=== PATIENT | female | born 1985 | race Two or more races ===

== ENCOUNTER 2022-03-14 13:58 | Outpatient (CLI) | payer OTHER | END 2022-03-14 16:00 | disposition home or self-care (01) | LOC: PRENATAL 13:58 | PROVIDERS: ATTEND Obstetrics & Gynecology Maternal & Fetal Medicine | DX: O35.0XX0 Maternal care for (suspected) central nervous system malformation in fetus, not applicable or unspecified (principal); Z3A.21 21 weeks gestation of pregnancy; O35.3XX0 Maternal care for (suspected) damage to fetus from viral disease in mother, not applicable or unspecified; O24.319 Unspecified pre-existing diabetes mellitus in pregnancy, unspecified trimester; O99.210 Obesity complicating pregnancy, unspecified trimester; O09.219 Supervision of pregnancy with history of pre-term labor, unspecified trimester ==

== ENCOUNTER 2022-04-14 14:05 | Outpatient (CLI) | payer OTHER | END 2022-04-14 15:07 | disposition home or self-care (01) | LOC: PRENATAL 14:05 | PROVIDERS: ATTEND Obstetrics & Gynecology Maternal & Fetal Medicine | DX: O26.849 Uterine size-date discrepancy, unspecified trimester (principal); O24.319 Unspecified pre-existing diabetes mellitus in pregnancy, unspecified trimester; Z3A.26 26 weeks gestation of pregnancy; O99.210 Obesity complicating pregnancy, unspecified trimester ==

== ENCOUNTER 2022-06-03 11:33 | Outpatient (CLI) | payer OTHER | END 2022-06-03 12:32 | disposition home or self-care (01) | LOC: PRENATAL 11:33 | PROVIDERS: ATTEND Obstetrics & Gynecology Maternal & Fetal Medicine | DX: O26.849 Uterine size-date discrepancy, unspecified trimester (principal); O35.0XX0 Maternal care for (suspected) central nervous system malformation in fetus, not applicable or unspecified; O24.319 Unspecified pre-existing diabetes mellitus in pregnancy, unspecified trimester; O99.210 Obesity complicating pregnancy, unspecified trimester ==

== ENCOUNTER 2025-11-05 17:19 | Emergency (ER) | payer OTHER ==
[~2025-11-05] VITALS: Ht 152.4 cm; Wt 93.9 kg
[2025-11-05] MEDS ORDERED: ACETAMINOPHEN 500 MG GEL..CAP PO ONE ×2 (17:31→18:00)
[2025-11-05 17:37] VITALS: BP 117/75; O2SAT 99
[2025-11-05] MEDS ORDERED: 0.9 % SODIUM CHLORIDE 1,000 ML IV SCH (18:00)
[2025-11-05] MEDS ORDERED: GUAIFENESIN 200 MG/10 ML BLIST.PACK PO ONE ×2 (18:00→18:02)
[2025-11-05] MEDS ORDERED: FAMOTIDINE/PF 20 MG/2 ML VIAL IV ONE (18:00)
[2025-11-05] MEDS ORDERED: FAMOTIDINE/PF 20 MG/2 ML VIAL ONE (18:02)
[2025-11-05 19:31] LABS: COVID-19 AG NEGATIVE (NEGATIVE)
[2025-11-05] MEDS ORDERED: MUCINEX DM ER1 EAC1 PO (19:42)
[2025-11-05] MEDS ORDERED: OSEL75CA PO (19:42)
[2025-11-05] MEDS ORDERED: PEPCID AC20 MG PO (19:42)
[2025-11-05] MEDS ORDERED: INTESTINEX680 M1 PO (19:42)
== END 2025-11-05 20:10 | disposition home or self-care (01) ==
LOC: ER 17:19
PROVIDERS: Student in an Organized Health Care Education/Training Program
DX: J10.1 Influenza due to other identified influenza virus with other respiratory manifestations (principal); E11.9 Type 2 diabetes mellitus without complications; Z20.822 Contact with and (suspected) exposure to COVID-19